=== PATIENT | male | born 1960 | race Caucasian/White ===

== ENCOUNTER 2024-03-27 19:43 | Inpatient (IN) | payer BC ==
[~2024-03-27] VITALS: Ht 167.6 cm; Wt 60.9 kg
[2024-03-27 20:19] LABS: CLARITY URINE CLEAR (CLEAR); COLOR URINE YELLOW (YELLOW); GLUCOSE URINE NEGATIVE (NEGATIVE); KETONES URINE NEGATIVE (NEGATIVE); LEUKOCYTE ESTERASE URINE NEGATIVE (NEGATIVE); NITRITE URINE NEGATIVE (NEGATIVE); OCCULT BLOOD URINE 3+ (NEGATIVE); PH URINE 5.5 (4.5-8.0); PROTEIN URINE 3+ (NEGATIVE); SPECIFIC GRAVITY URINE 1.012 (1.005-1.030); UROBILINOGEN URINE 0.2 E.U./dL (0.2-1.0)
[2024-03-27 20:37] LABS: BACTERIA URINE NONE SEEN; RBC URINE 0-2 /hpf (0-2); SQUAMOUS EPITHELIAL CELL URINE 1+ /lpf (RARE/1+)
[2024-03-27 21:15] LABS: HEMATOCRIT. 24.1 % (42.0-52.0); HEMOGLOBIN. 7.7 g/dL (14.0-18.0); MEAN CORPUSCULAR HEMOGLOBIN 24.7 pg (28.0-32.0); MEAN CORPUSCULAR HGB CONC 31.8 g/dL (31.0-37.0); MEAN CORPUSCULAR VOLUME 77.5 fL (80.0-94.0); MEAN PLATELET VOLUME 8.7 fl (7.4-10.4); PLATELET 135 x1000/uL (130-400); RED BLOOD CELL COUNT 3.11 mill/uL (4.7-6.1); RED CELL DISTRIBUTION WIDTH 15.6 % (11.6-14.6); WHITE BLOOD COUNT 13.6 x1000/uL (4.5-11.0)
[2024-03-27 21:21] LABS: POTASSIUM 5.6 mEq/L (3.5-5.1)
[2024-03-27 21:22] LABS: CALCIUM 7.7 mg/dL (8.7-10.4)
[2024-03-27 21:23] LABS: DIFFERENTIAL COMMENT 1
[2024-03-27 21:27] LABS: CREATININE 1.6 mg/dL (0.6-1.3)
[2024-03-27] MEDS ORDERED: FUROSEMIDE 100MG/10ML VIAL IV STA (21:33)
[2024-03-27 21:43] LABS: ANISOCYTOSIS 1+; HYPOCHROMASIA 1+; MICROCYTOSIS 1+; PLATELET ESTIMATE NORMAL
[2024-03-27 22:20] VITALS: PULSE 81; RESP 18; O2SAT 98
[2024-03-27] MEDS: ALBUTEROL (0.083%) 2.5MG/3ML NEB HHN ONE (22:20)
[2024-03-27] MEDS: SODIUM POLYSTYRENE SULFONATE 15 G/60 ML BOT PO ONE (22:52)
[2024-03-27] MEDS: FUROSEMIDE 40MG/4ML VIAL IV NR (22:53)
[2024-03-27] MEDS: SODIUM BICARBONATE 8.4% 1 MEQ/ML 50ML SYR IV ONE (22:53)
[2024-03-27] MEDS: CALCIUM CHLORIDE 1GM/10ML SYR IV ONE (22:54)
[2024-03-28] VITALS (11 sets, daily range): BP systolic 104–144; BP diastolic 37–64; PULSE 16–87; RESP 18–53; TEMP 97.2–98.2
[2024-03-28] MEDS ORDERED: ONDANSETRON HCL 4MG/2ML INJ IV PRN (01:45)
[2024-03-28 06:41] LABS: CHLORIDE 110 mEq/L (98-107); SODIUM 140 mEq/L (136-145)
[2024-03-28 06:42] LABS: CARBON DIOXIDE 25 mEq/L (21-32)
[2024-03-28 06:47] LABS: CREATININE 1.4 mg/dL (0.6-1.3); GLUCOSE 102 mg/dL (70-105); UREA NITROGEN BLOOD 47 mg/dL (9-23)
[2024-03-28] MEDS: PANTOPRAZOLE 40MG DR TABLET PO SCH (06:47)
[2024-03-28] MEDS: AMLODIPINE 10MG TABLET PO SCH (08:52)
[2024-03-28 09:03] LABS: HEMATOCRIT. 21.4 % (42.0-52.0); MEAN CORPUSCULAR HEMOGLOBIN 25.1 pg (28.0-32.0); MEAN CORPUSCULAR HGB CONC 32.7 g/dL (31.0-37.0); MEAN CORPUSCULAR VOLUME 76.7 fL (80.0-94.0); MEAN PLATELET VOLUME 9.2 fl (7.4-10.4); PLATELET 132 x1000/uL (130-400); RED BLOOD CELL COUNT 2.79 mill/uL (4.7-6.1); RED CELL DISTRIBUTION WIDTH 15.6 % (11.6-14.6); WHITE BLOOD COUNT 10.1 x1000/uL (4.5-11.0)
[2024-03-28 09:07] LABS: DIFFERENTIAL COMMENT 1
[2024-03-28 13:02] LABS: HEMATOCRIT 21.9 % (42.0-52.0); HEMOGLOBIN 7.1 g/dL (14.0-18.0)
[2024-03-28 16:08] LABS: ANISOCYTOSIS 1+; MICROCYTOSIS 1+; PLATELET ESTIMATE NORMAL
[2024-03-28 19:55] LABS: IRON 15 ug/dL (65-175)
[2024-03-28 19:57] LABS: ALANINE AMINOTRANSFERASE 16 IU/L (10-49); ASPARTATE AMINOTRANSFERASE 24 IU/L (<34); LACTATE DEHYDROGENASE 295 IU/L (120-246)
[2024-03-28 19:58] LABS: BILIRUBIN TOTAL 0.3 mg/dL (0.1-1.0); PROTEIN TOTAL 5.9 g/dL (6.0-8.3); TOTAL IRON BINDING CAPACITY 186 ug/dl (250-425)
[2024-03-28 20:08] LABS: BILIRUBIN DIRECT < 0.1 mg/dL (<=3.0)
[2024-03-28 20:33] LABS: HEPATITIS A AB IGM NEGATIVE (Negative)
[2024-03-28 20:34] LABS: HEPATITIS B CORE AB IGM NEGATIVE (Negative); HEPATITIS C AB NON REACTIVE (Neg) (Negative)
[2024-03-28 20:39] LABS: HEPATITIS B SURFACE ANTIGEN REACTIVE PEND CONFIR (Negative)
[2024-03-29] VITALS: BP 117/45; PULSE 56; RESP 19; TEMP 98.1
[2024-03-29 08:00] VITALS: BP 121/56; PULSE 61; RESP 20; TEMP 97.4
[2024-03-29 08:32] LABS: HEMATOCRIT. 25.9 % (42.0-52.0); HEMOGLOBIN. 8.3 g/dL (14.0-18.0); MEAN CORPUSCULAR HEMOGLOBIN 25.1 pg (28.0-32.0); MEAN CORPUSCULAR HGB CONC 32.2 g/dL (31.0-37.0); MEAN CORPUSCULAR VOLUME 77.9 fL (80.0-94.0); MEAN PLATELET VOLUME 9.5 fl (7.4-10.4); PLATELET 113 x1000/uL (130-400); RED BLOOD CELL COUNT 3.33 mill/uL (4.7-6.1); RED CELL DISTRIBUTION WIDTH 16.8 % (11.6-14.6)
[2024-03-29 08:38] LABS: CALCIUM 8.7 mg/dL (8.7-10.4); POTASSIUM 5.5 mEq/L (3.5-5.1)
[2024-03-29 08:44] LABS: CREATININE 1.5 mg/dL (0.6-1.3)
[2024-03-29 09:03] LABS: DIFFERENTIAL COMMENT 1
[2024-03-29 12:00] VITALS: BP 118/62; PULSE 58; RESP 18; TEMP 98.2
[2024-03-29 15:03] LABS: FERRITIN 75 ng/mL (22-322)
[2024-03-29 15:04] LABS: VITAMIN B12 SERUM 343 pg/mL (211-911)
[2024-03-29 16:00] VITALS: BP 121/58; PULSE 59; RESP 17; TEMP 97.1
[2024-03-29 17:43] LABS: ANISOCYTOSIS 1+; MICROCYTOSIS 1+; PLATELET ESTIMATE DECREASED
[2024-03-29 20:00] VITALS: BP 116/59; PULSE 58; RESP 19; TEMP 97.9
[2024-03-30] VITALS: BP 116/59; PULSE 57; RESP 18; TEMP 97.9
[2024-03-30 04:00] VITALS: BP 115/59; PULSE 59; RESP 18; TEMP 96.8
[2024-03-30 07:58] LABS: BASOPHILS % 0.2 % (0.0-2.0); DIFFERENTIAL COMMENT 1; EOSINOPHILS % 0.5 % (0.0-5.0); HEMATOCRIT. 28.1 % (42.0-52.0); HEMOGLOBIN. 9.1 g/dL (14.0-18.0); LYMPHOCYTES % 79.5 % (20.0-50.0); MEAN CORPUSCULAR HEMOGLOBIN 25.1 pg (28.0-32.0); MEAN CORPUSCULAR HGB CONC 32.2 g/dL (31.0-37.0); MEAN CORPUSCULAR VOLUME 77.9 fL (80.0-94.0); MEAN PLATELET VOLUME 9.2 fl (7.4-10.4); MONOCYTES % 1.8 % (2.0-8.0); PLATELET 126 x1000/uL (130-400); RED BLOOD CELL COUNT 3.61 mill/uL (4.7-6.1); RED CELL DISTRIBUTION WIDTH 16.5 % (11.6-14.6)
[2024-03-30 08:00] VITALS: BP 133/60; PULSE 55; RESP 16; TEMP 97.2
[2024-03-30 08:20] LABS: CREATININE 1.4 mg/dL (0.6-1.3)
[2024-03-30 08:37] LABS: CALCIUM 8.9 mg/dL (8.7-10.4)
[2024-03-30 12:00] VITALS: BP 123/58; PULSE 56; RESP 18; TEMP 96.4
[2024-03-30 14:48] VITALS: BP 129/58; PULSE 72; TEMP 97.2; O2SAT 98
== END 2024-03-30 15:20 | disposition home or self-care (01) | DRG 684 ==
LOC: ER 19:43 → 7EST 22:52
PROVIDERS: ADMIT Internal Medicine; ATTEND Internal Medicine
PROC: 30233N1 Transfusion of Nonautologous Red Blood Cells into Peripheral Vein, Percutaneous Approach (ICD-10-PCS; principal; 2024-03-28)
DX: N17.0 Acute kidney failure with tubular necrosis (principal); E87.5 Hyperkalemia; I10 Essential (primary) hypertension; R31.9 Hematuria, unspecified; R16.2 Hepatomegaly with splenomegaly, not elsewhere classified; D50.9 Iron deficiency anemia, unspecified; Z55.6 Problems related to health literacy; Z56.0 Unemployment, unspecified; Z86.73 Personal history of transient ischemic attack (TIA), and cerebral infarction without residual deficits
CPT/HCPCS: 36415; 71045; 74176; 80048; 80076; 81003; 82270; 82607; 82728; 82746; 82962; 83036; 83540; 83550; 83615; 83880; 84155; 84165; 85014; 85018; 85025; 85044; 86705; 86709; 86850; 86900; 86920; 87340; 93005; 93970; 94644; 99285; J1940; J3490; P9016